=== PATIENT | female | born 1970 | race Caucasian/White ===

== ENCOUNTER 2017-05-02 14:05 | Emergency (ER) | payer OTHER ==
[~2017-05-02] VITALS: Ht 170.2 cm; Wt 68.0 kg
[2017-05-02] MEDS ORDERED: LAMICTAL100 MG PO (14:16)
[2017-05-02] MEDS ORDERED: HYDROCODONE-AP1 EAC6 PO (16:03)
[2017-05-02] MEDS ORDERED: AUGMENTIN 875-1 EACH PO (16:08)
[2017-05-02] MEDS ORDERED: PHENERGAN 25 MG25 M1 PO (16:16)
[2017-05-02] MEDS ORDERED: ROBAXIN 750 MG750 M1 PO (16:16)
[2017-05-02 16:19] VITALS: BP 152/101
== END 2017-05-02 16:19 | disposition home or self-care (01) ==
LOC: M.ERS 14:05
DX: S02.2XXA Fracture of nasal bones, initial encounter for closed fracture (principal); R51 Headache; J01.90 Acute sinusitis, unspecified; M54.2 Cervicalgia; Z90.710 Acquired absence of both cervix and uterus; W01.198A Fall on same level from slipping, tripping and stumbling with subsequent striking against other object, initial encounter; Y93.89 Activity, other specified; Y92.818 Other transport vehicle as the place of occurrence of the external cause; Y99.8 Other external cause status